=== PATIENT | female | born 1985 | race Caucasian/White ===

== ENCOUNTER 2022-02-10 19:38 | Inpatient (IN) | payer MEDICAID, OTHER ==
[~2022-02-10] VITALS: Ht 154.9 cm; Wt 74.8 kg
[2022-02-10] MEDS ORDERED: SODIUM CHLORIDE 0.9% 1,000 ML IVB ONE (20:15)
[2022-02-10] MEDS ORDERED: hydrALAZINE HCL 20 MG/ML VL IV ONE ×2 (20:15→21:30)
[2022-02-10 20:18] LABS: Basophils # (auto) 0 10 ^3/uL (0-0.2); Basophils % (auto) 0.8 % (0.0-2.0); Eosinophils # (auto) 0.3 10 ^3/uL (0-0.8); Hematocrit 30.8 % (36.0-46.0); Hemoglobin 10.2 g/dL (12.2-16.2); Lymphocytes % (auto) 31.8 % (10.0-50.0); Mean Corpuscular Hemoglobin 29.1 pg (28.0-32.0); Mean Corpuscular Volume 88.1 fL (80.0-100.0); Monocytes # (auto) 0.6 10 ^3/uL (0-1.3); Monocytes % (auto) 9.2 % (0.0-12.0); Neutrophils # (auto) 3.3 10 ^3/uL (1.6-8.6); Neutrophils % (auto) 53.2 % (37.0-80.0); Nucleated Red Blood Cells % 0.1 %; Red Cell Distribution Width 17.8 % (11.8-14.3); White Blood Cell 6.3 10^3/uL (4.4-10.8)
[2022-02-10] MEDS: MAGNESIUM SULFATE 1GM/100ML 100 ML IV SCH ×4 (20:25→23:35)
[2022-02-10] MEDS ORDERED: IOHEXOL 350 MG/ML 100ML IJ ONE (20:31)
[2022-02-10 20:38] LABS: Albumin 2.7 g/dL (3.4-5.0); BUN/Creatinine Ratio 23.1; Calcium 8.3 mg/dL (8.5-10.1)
[2022-02-10 20:41] LABS: Bilirubin, Total 0.3 mg/dL (0.2-1.0); Total Protein 6.5 g/dL (6.4-8.2)
[2022-02-10 21:41] LABS: INR 1.05 (0.9-1.15)
[2022-02-10] MEDS ORDERED: SODIUM CHLORIDE 0.9% 1,000 ML IV ONE (23:45)
[2022-02-10] MEDS ORDERED: ACETAMINOPHEN 500 MG TAB PO ONE (23:45)
[2022-02-10 23:51] LABS: Amphetamine Screen, Urine NEGATIVE (NEGATIVE); Barbiturate Scree,Urine NEGATIVE (NEGATIVE); Cannabinoid Screen, Urine NEGATIVE (NEGATIVE)
[2022-02-10 23:53] LABS: Alcohol, Urine < 3.0 mg/dL (0-10); Benzodiazephine Screen, Urine NEGATIVE (NEGATIVE); Cocaine Screen, Urine NEGATIVE (NEGATIVE); Opiate Scree,Urine NEGATIVE (NEGATIVE); Phencyclidine Screen, Urine NEGATIVE (NEGATIVE)
[2022-02-11] VITALS (33 sets, daily range): BP systolic 109–172; BP diastolic 60–93
[2022-02-11 00:20] LABS: Urine Bacteria NONE SEEN /hpf (None Seen); Urine Blood 2+ /uL (Negative); Urine WBC 1 /hpf (0 - 5)
[2022-02-11 00:24] LABS: Protein, Urine < 5.0 mg/dL (0.0-11.9)
[2022-02-11 00:41] LABS: Creatinine, Urine 10.5 mg/dL (30.0-125.0)
[2022-02-11] MEDS ORDERED: SODIUM CHLORIDE 0.9% 1,000 ML IV ONE (01:30)
[2022-02-11] MEDS ORDERED: NITROGLYCERIN 0.4 MG SL TAB SL PRN (02:15)
[2022-02-11] MEDS ORDERED: MORPHINE SULFATE INJECTION 2 MG/ML SYRG IV PRN (02:15)
[2022-02-11] MEDS ORDERED: ONDANSETRON HCL 4 MG/2 ML VIAL IV PRN (02:15)
[2022-02-11] MEDS ORDERED: ATROPINE SULFATE 1 MG/1 ML VIAL IV PRN ×2 (04:30→04:45)
[2022-02-11] MEDS: MORPHINE SULFATE 4 MG/ML SYR/VIAL IV PRN ×3 (05:05→21:30)
[2022-02-11 06:40] LABS: Basophils # (auto) 0.1 10 ^3/uL (0-0.2); Basophils % (auto) 1.1 % (0.0-2.0); Eosinophils # (auto) 0.3 10 ^3/uL (0-0.8); Eosinophils % (auto) 4.1 % (0.0-7.0); Hematocrit 26.9 % (36.0-46.0); Hemoglobin 9.2 g/dL (12.2-16.2); Lymphocytes # (auto) 1.4 10 ^3/uL (0.4-5.4); Lymphocytes % (auto) 21.5 % (10.0-50.0); Mean Corpuscular Hemoglobin 29.7 pg (28.0-32.0); Mean Corpuscular Hgb Conc. 34.1 g/dL (32.0-36.0); Mean Corpuscular Volume 87.3 fL (80.0-100.0); Monocytes # (auto) 0.6 10 ^3/uL (0-1.3); Monocytes % (auto) 8.9 % (0.0-12.0); Neutrophils # (auto) 4.1 10 ^3/uL (1.6-8.6); Neutrophils % (auto) 64.4 % (37.0-80.0); Nucleated Red Blood Cells % 0.1 %; Red Blood Cells 3.08 10^6/uL (4.0-5.20); Red Cell Distribution Width 17.9 % (11.8-14.3); White Blood Cell 6.4 10^3/uL (4.4-10.8)
[2022-02-11 07:16] LABS: BUN/Creatinine Ratio 17.8; Calcium 7.7 mg/dL (8.5-10.1)
[2022-02-11] MEDS: ACETAMINOPHEN 325 MG TAB PO PRN ×2 (09:27→16:22)
[2022-02-11] MEDS: FAMOTIDINE 20 MG TAB PO SCH ×2 (12:21→22:10)
[2022-02-12] VITALS (13 sets, daily range): BP systolic 105–157; BP diastolic 65–90
[2022-02-12] MEDS: FAMOTIDINE 20 MG TAB PO SCH (09:00)
[2022-02-12] MEDS: ACETAMINOPHEN 325 MG TAB PO PRN (12:40)
== END 2022-02-12 18:48 | disposition home or self-care (01) | DRG 561 ==
LOC: ER 19:42 → TELE 02-11 02:04 → DOU IN ICU 02-11 03:51
PROVIDERS: ADMIT Hospitalist; ATTEND Hospitalist
DX: O99.893 Other specified diseases and conditions complicating puerperium (principal); R00.1 Bradycardia, unspecified; Z20.822 Contact with and (suspected) exposure to COVID-19
CPT/HCPCS: 36415; 70460; 71275; 76856; 80048; 80053; 80307; 81001; 82570; 83690; 84156; 84439; 84443; 84484; 84550; 84702; 85025; 85610; 86850; 86900; 86901; 87081; 93005; 93017; 93306; 93970; 96365; 96366; 96375; 96376; G0378